=== PATIENT | male | born 1995 | race Hispanic/Latino ===

== ENCOUNTER 2019-10-09 06:38 | Emergency (ER) | payer SELFPAY ==
[~2019-10-09] VITALS: Ht 182.9 cm; Wt 79.4 kg
--- NOTE | 2019-10-09 07:17 | Emergency Department Note ---
History of Present Illnes History of Present Illness Chief Complaint: Painful urination History of Present Illness This is a 24 year old male, with a history of HIV, who presents with a two-week history of pain and difficulty with urinating, scrotal pain, and lower abdominal "discomfort." He denies any penile discharge, urinary urgency, or hematuria. Patient has had unprotected intercourse. He states that he was treated empirically for gonorrhea and chlamydia one month ago. He is having some urinary frequency, with difficulty fully emptying his bladder. He states he only passes a small amount of urine at a time. He has anal receptive intercourse with males. Pt lives in [place], [place], and is visiting some friends. Historian: Patient Arrival Mode: Car Warp Yarn Sorter Required: No Onset (how long ago): week(s) (2) Location: scrotum Quality: aching Radiation: Reports non-radiation Severity: moderate Onset quality: gradual Duration (how long): week(s) (2) Timing of current episode: constant Progression: unchanged Chronicity: new Context: Reports recent illness (tx for GC/ Chlamydia 08/15/2019, test was reportedly positive; are) Relieving factors: none Exacerbating factors: none Associated symptoms: Reports denies other symptoms; Denies fever/chills, Denies nausea/vomiting, Denies weakness Treatments prior to arrival: none Risk factors: HIV, unprotected intercourse; Past Medical/Family History Physician Review I have reviewed the patient's past medical and family history. Any updates have been documented here. Past Medical History Recent Fever: No Clinical Suspicion of Infectio: Yes Other Medical History: HIV Other Surgery: Right femur Right shoulder Social History Smoking Cessation: Current every day smoker Counseling Performed: Yes Alcohol Use: None Any Illegal Drug Use: Yes (Meth) TB Exposure/Symptoms: No Physically hurt or threatened: No Family History Family history of heart diseas: No Other Any Pre-Existing Lines (PICC,: No Is patient up to date on immun: No Review of Systems Review of Systems Constitutional: Reports no symptoms; Denies as per HPI, Denies chills, Denies diaphoresis, Denies fever, Denies malaise, Denies weakness, Denies other EENTM: Reports no symptoms Cardiovascular: Reports no symptoms Respiratory: Reports no symptoms Gastrointestinal: Reports no symptoms, Reports abdominal pain (suprapubic "discomfort"); Denies diarrhea, Denies nausea, Denies vomiting Genitourinary: Reports no symptoms, Reports frequency; Denies discharge, Denies dysuria, Denies hematuria Musculoskeletal: Reports no symptoms; Denies back pain, Denies joint pain, Denies joint swelling, Denies muscle stiffness, Denies neck pain Integumentary: Reports no symptoms Neurological: Reports no symptoms Psychological: Reports no symptoms Endocrine: Reports no symptoms Hematological/Lymphatic: Reports no symptoms Review of other systems: All other systems negative Physical Exam Related Data Allergies: Coded Allergies: No Known Allergies (Unverified , 10/09/19) Vital signs reviewed: Yes Physical Exam CONSTITUTIONAL Constitutional: Present well-developed, Present well-nourished; Absent distressed, Absent ill appearing HENT HENT: Present normocephalic, Present atraumatic, Present oropharynx clear/moist, Present nose normal EYES Eyes: Reports PERRL, Reports conjunctivae normal NECK Neck: Present ROM normal, Present supple; Absent thyromegaly, Absent cervical adenopathy PULMONARY Pulmonary: Present effort normal, Present breath sounds normal CARDIOVASCULAR Cardiovascular: Present regular rhythm, Present heart sounds normal, Present capillary refill normal, Present normal rate; Absent strong pulses GASTROINTESTINAL Abdominal: Present soft, Present bowel sounds normal, Present tender (mild suprapubic ttp, no rebound or guarding); Absent distension GENITOURINARY Genitourinary: Present penis normal (circumcised male), Present other (right testicle ttp, no erythema, warmth or tendernes; left testicle - nl and nontender; no scrotal edema, redness or warmth; ) SKIN Skin: Present warm, Present dry; Absent rash MUSCULOSKELETAL Musculoskeletal: Present ROM normal NEUROLOGICAL Neurological: Present alert, Present oriented x 3, Present no gross motor or sensory deficits PSYCHOLOGICAL Results Laboratory Lab results reviewed: Yes Laboratory comments UA - josie - small, blo - trace, lysed, pro - 30 mg/dl, nicole - trace; Assessment & Plan Medical Decision Making MDM Antibiotics chosen to cover enteric organisms, due to anal receptive intercourse. - Complete all medications as directed. - You MUST wear a condom with EVERY sexual encounter, in order to prevent recurrence of infection with sexually transmitted diseases AND from infecting others with HIV. - Follow-up with your Primary Care Physician, upon return home, to recheck your urin and also your symptoms. - Return to the ER, if your symptoms worsen, if you begin to run fever or have worsening testicular pain. Assessment & Plan Final Impression: (1) Epididymitis, right (2) Orchiditis (3) High risk sexual behavior (4) HIV (human immunodeficiency virus infection) Depart Disposition: HOME, SELF-FPC Meds Active Scripts Tamsulosin Hcl* (FLOMAX*) 0.4 Mg Cap, 1 TAB PO DAILY for for difficulty urinating, #14 CAP 0 Refills Prov:JAMIE MCBRIDE MD 10/09/19 Levofloxacin (LEVAQUIN) 500 Mg Tablet, 500 MG PO DAILY for infection for 10 Days, #10 TAB 0 Refills Prov:JAMIE MCBRIDE MD 10/09/19 Reported Medications Bictegrav/Emtricit/Tenofov Ala (Biktarvy 50-200-25 mg Tablet) 1 Each Tablet, DAILY 10/09/19 JAMIE MCBRIDE MD Oct 09, 2019 07:17
[2019-10-09] MEDS ORDERED: BIKTARVY 50-201 EACH (07:42)
[2019-10-09] MEDS ORDERED: CEFTRIAXONE SOD 250 MG VIAL IM ONE (08:00)
[2019-10-09] MEDS ORDERED: AZITHROMYCIN 250 MG TAB PO SCH (08:00)
[2019-10-09] MEDS ORDERED: LEVAQUIN500 MG PO (08:02)
[2019-10-09] MEDS ORDERED: FLOMAX0.4 MG PO (08:03)
[2019-10-09] MEDS ORDERED: CEFTRIAXONE SOD 500 MG VIAL ONE (08:16)
[2019-10-09 08:36] VITALS: BP 118/76
== END 2019-10-09 08:26 | disposition home or self-care (01) ==
LOC: FSED 07:30
DX: N45.1 Epididymitis (principal); N45.2 Orchitis; B20 Human immunodeficiency virus [HIV] disease; Z72.52 High risk homosexual behavior
CPT/HCPCS: 81003; 96372; 99283; J0696